=== PATIENT | male | born 1960 | race Caucasian/White ===

== ENCOUNTER 2018-08-03 10:00 | Day surgery (SDC) | payer OTHER ==
[2018-08-03] MEDS ORDERED: PROPOFOL 20 ML (14:17)
[2018-08-03] MEDS ORDERED: LIDOCAINE 2% (SDV) 5 ML INJ (14:17)
[2018-08-03] MEDS ORDERED: FENTAnyl 50 MCG/ML VIAL (14:17)
== END 2018-08-03 16:05 | disposition home or self-care (01) ==
LOC: GIL 10:00
DX: K29.50 Unspecified chronic gastritis without bleeding (principal); G47.30 Sleep apnea, unspecified; I10 Essential (primary) hypertension; E78.5 Hyperlipidemia, unspecified
CPT/HCPCS: 43239; 88305; 88312